=== PATIENT | male | born 1935 | race Caucasian/White ===

== ENCOUNTER 2016-08-25 05:22 | Day surgery (SDC) | payer MEDICARE, BC ==
[~2016-08-25] VITALS: Ht 175.3 cm; Wt 92.9 kg
--- NOTE | ~2016-08-25 | OR ---
PATIENT'S NAME: VICTORIANO PIERRE [place] AGE: 81 Y [address] ROOM: [place] [address] [place] [facility] [place]: 08/25/2016 OR/Procedure Report DISCHARGE DATE: 08/25/2016 FAMILY PHYSICIAN: Aung Bradford MD ATTENDING PHYSICIAN: Reed Fletcher SURGEON: Reed Fletcher MD EDITOR MANAGING NEWSPAPER: DATE OF PROCEDURE: 08/25/2016 PREOPERATIVE DIAGNOSES: 1. Carcinoma of the prostate. 2. Right ureteral obstruction with hydronephrosis. PREOPERATIVE DIAGNOSES: 1. Carcinoma of the prostate. 2. Right ureteral obstruction with hydronephrosis. PROCEDURES: 1. Cystoscopy and removal of stent. 2. Cystoscopy and retrograde pyelograms. 3. Cystoscopy insertion of stent 6-[place] Islander 26 cm. DESCRIPTION OF PROCEDURE: After adequate anesthesia, he was prepped and draped. A 21-[place] Islander cystoscope was passed. The anterior urethra and prostatic urethra were normal with no obstruction. Examination of the bladder was normal except there was lot of edema around the right orifice where the stent was coming from. With the endoscopic forceps, the stent was removed. A yellow open-ended catheter was inserted and contrast media was injected for the retrograde pyelograms. A guidewire was then passed. Over the guidewire, a 6-[place] Islander 26 cm stent was passed, coiled nicely in the kidney pelvis and the other end in the bladder. He was then accompanied to recovery area. RETROGRADE PYELOGRAM REPORT: The initial film showed degenerative changes of the lumbar spine. After injection of contrast media, the ureter was normal in course and caliber. There was dilatation of the renal pelvis and caliceal system. Final film shows a stent in place. IMPRESSION: Hydronephrosis, right kidney. PATIENT'S NAME: VICTORIANO PIERRE [place] AGE: 81 Y [address] ROOM: [place] [address] [place] [facility] [place]: 08/25/2016 OR/Procedure Report DISCHARGE DATE: 08/25/2016 FAMILY PHYSICIAN: Aung Bradford MD ATTENDING PHYSICIAN: Reed Flethcer MD EKL/modl /[id number] CC: Suresh Alonso MD d: 08/25/16 0733 t: 08/26/16 0455, OPERATIVE SUMMARY
--- NOTE | ~2016-08-25 | HP ---
PATIENT'S NAME: VICTORIANO PIERRE [facility] AGE: 81 Y [address] ROOM: [place] [address] LOCATION: [facility] ADMIT DATE: 08/19/2016 History & Physical DISCHARGE DATE: FAMILY PHYSICIAN: Aung Bradford MD ATTENDING PHYSICIAN: Maximino Fletcher DATE OF SERVICE: HISTORY OF PRESENT ILLNESS: This is an 81-year-old male, who was diagnosed with adenocarcinoma of the prostate in 2009. At that time, he was treated with radiation seed implant, but by October 2013, his PSA was on the rise and it increased from 0.7 to higher levels. He also has had an elevated serum creatinine. 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 In February 2015 a stent was placed and he was started on Firmagon every month. His PSA has dropped and he has continued to be on the Firmagon. He is seen now for stent change. He also has a history of multiple myeloma and is under the care Dr. Alonso. He is seen now for stent change. PAST MEDICAL HISTORY AND ILLNESSES: 1. Azotemia. 2. Hypertension. 3. Hypercholesterolemia. 4. Adenocarcinoma of the prostate. OPERATIONS: Right total knee hemorrhoidectomy, left total knee #4 as above. ALLERGIES: PENICILLIN. PHYSICAL EXAMINATION: GENERAL: A well-developed, well-nourished male. CHEST: Clear. HEART: Normal sinus rhythm. ABDOMEN: Soft with no palpable masses. : Normal penis. Testicles are normal. Prostate is flat with a firm left lobe. RECTAL: Negative. PATIENT'S NAME: VICTORIANO PIERRE [facility] AGE: 81 Y [address] ROOM: [place] [address] LOCATION: [facility] ADMIT DATE: 08/19/2016 History & Physical DISCHARGE DATE: FAMILY PHYSICIAN: Aung Bradford MD ATTENDING PHYSICIAN: Maximino Fletcher IMPRESSION: 1. 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 2. Right ureteral obstruction. 3. Right ureteral stent. PLAN: As above. MAXIMINO K MD GEOVANNI FLETCHER/juan daniel /[id number] D: [id number] T: [id number] HISTORY & PHYSICAL
[~2016-08-25 05:22] MED LIST changes: -CYMBALTA60 MG PO; -GLUTAMINE PO; -VITAMIN B-6100 MG PO
[2016-08-25 06:15] LABS: BASOPHIL % 0.6 %; EOSINOPHIL # 0.1 K/uL (0.0-0.5); EOSINOPHIL % 2.7 %; HEMATOCRIT 36.3 % (33.0-50.0); HEMOGLOBIN 11.5 g/dL (11.0-16.0); IMMATURE GRANULOCYTE % 0.6 %; LYMPHOCYTE # 1.2 K/uL (0.8-4.0); LYMPHOCYTE % 34.5 %; MCH 30.7 pg (27.0-34.0); MCHC 31.7 gm/dL (32.0-36.5); MCV 97.1 fl (83.0-98.0); MONOCYTE # 0.4 K/uL (0.0-1.0); MONOCYTE % 11.9 %; MPV 10.6 fl (9.4-12.4); NEUTROPHIL # (ANC) 1.7 K/uL (1.4-9.0); NEUTROPHIL % 49.7 %; NRBC % 0 /100WBC (0-0.00); RBC 3.74 M/uL (3.50-5.50); WBC 3.4 K/uL (4.0-11.0)
[2016-08-25 06:16] LABS: PLATELET COUNT 128 K/uL (150-450)
== END 2016-08-25 07:45 | disposition disaster alternative care site (69) ==
LOC: GSDC 05:22
PROVIDERS: Urology
PROC: 0T768DZ Dilation of Right Ureter with Intraluminal Device, Via Natural or Artificial Opening Endoscopic (ICD-10-PCS; principal; 2016-08-25)
PROC: 0TP98DZ Removal of Intraluminal Device from Ureter, Via Natural or Artificial Opening Endoscopic (ICD-10-PCS; 2016-08-25)
PROC: BT1DYZZ Fluoroscopy of Right Kidney, Ureter and Bladder using Other Contrast (ICD-10-PCS; 2016-08-25)
DX: C61 Malignant neoplasm of prostate (principal); N13.1 Hydronephrosis with ureteral stricture, not elsewhere classified; Z46.6 Encounter for fitting and adjustment of urinary device; R79.89 Other specified abnormal findings of blood chemistry; I10 Essential (primary) hypertension; E78.00 Pure hypercholesterolemia, unspecified; Z88.0 Allergy status to penicillin; Z98.890 Other specified postprocedural states
CPT/HCPCS: C1769; J7120

== ENCOUNTER → 2016-08-25 | Outpatient (CLI) | payer MEDICARE, BC ==
[~2016-08-25] MED LIST: "\\\"PREP SPRAY\\\"-TIN4 OZ"; ASPIRIN325 MG PO; CALCIUM 500 +1 EACH PO; CEFTIN500 MG PO; CYMBALTA60 MG PO; DECADRON4 MG PO; FEOSOL325 MG PO; FIRMAGON80 MG SUB-Q; FISH OIL1000 MG PO; FLEXERIL10 MG PO; FLOMAX0.4 MG PO; FLORASTOR250 MG PO; GLUTAMINE PO; K-TAB 10MEQ10 MEQ PO; LOPRESSOR50 MG PO; MOBIC15 MG PO; MULTI VITAMIN1 EACH PO; NORCO 5-325 MG1 TAB PO; NORVASC10 MG PO; PERCOCET 5-3251 EACH PO; PRILOSEC20 M1 PO; PROCRIT40000 UNIT SUB-Q; REVLIMID5 MG PO; RYTHMOL150 MG PO; TENORMIN25 M1 PO; VITAMIN B-1000 MCG/M SUB-Q; VITAMIN B-6100 MG PO; ZOMETA4 MG/5 ML IV; [UNRECOGNIZED DRUG - OTHER] IV
== END | disposition disaster alternative care site (69) ==
LOC: GRAD 09:51
DX: C61 Malignant neoplasm of prostate (principal); C79.51 Secondary malignant neoplasm of bone
CPT/HCPCS: A9503

== ENCOUNTER → 2016-09-01 | Outpatient (CLI) | payer MEDICARE, BC ==
[~2016-09-01] MED LIST changes: +CYMBALTA60 MG PO; +GLUTAMINE PO; +VITAMIN B-6100 MG PO
== END | disposition disaster alternative care site (69) ==
LOC: GRAD 12:13
DX: C90.01 Multiple myeloma in remission (principal); M47.812 Spondylosis without myelopathy or radiculopathy, cervical region; M47.816 Spondylosis without myelopathy or radiculopathy, lumbar region; M51.26 Other intervertebral disc displacement, lumbar region; M48.54XD Collapsed vertebra, not elsewhere classified, thoracic region, subsequent encounter for fracture with routine healing; M89.9 Disorder of bone, unspecified; M79.652 Pain in left thigh; D69.6 Thrombocytopenia, unspecified; D47.2 Monoclonal gammopathy; D51.8 Other vitamin B12 deficiency anemias; D63.1 Anemia in chronic kidney disease; M62.81 Muscle weakness (generalized); R53.83 Other fatigue; R20.0 Anesthesia of skin
CPT/HCPCS: A9577

== ENCOUNTER 2016-09-30 17:15 | Inpatient (IN) | payer MEDICARE, BC ==
[~2016-09-30] VITALS: Ht 175.3 cm; Wt 91.7 kg
--- NOTE | ~2016-09-30 | HP ---
PATIENT'S NAME: VICTORIANO PIERRE [facility] AGE: 81 Y [address] ROOM: [address] [place], [place] [address] [facility] ADMIT DATE: 09/30/2016 History & Physical DISCHARGE DATE: FAMILY PHYSICIAN: Aung Bradford MD ATTENDING PHYSICIAN: REY BENZ DATE OF SERVICE: CHIEF COMPLAINT: Confusion, not feeling well. HISTORY OF PRESENT ILLNESS: An 81-year-old gentleman with a past medical history of multiple myeloma, undergoing chemotherapy as well as metastatic prostate carcinoma, undergoing chemotherapy. He presented to Dr. Gillespie's, PCP, clinic today, where he was brought in by significant other for not being himself for past 1 week. It appears that he has been having these symptoms of not feeling well, getting in and out of confused state, not drinking much, not eating, and feeling weak all the time. At the primary care physician's office, a BMP was done, which did show sodium of 123 and he was admitted here for further workup. On my encounter, he appears drowsy but alert and oriented x3. He, at this point, stated he is feeling weak, but he denied any other symptoms. He said he has chronic back pain secondary to his cancer, but he said, otherwise, he feels well. Does not have much appetite. He said he does not have any cough, any sputum production, any shortness of breath, any chest pain, any dizziness, any trouble with the eyes, any abdominal pain, or any constipation or diarrhea. He did complain of going to the bathroom for urinating multiple times during the day which is not normal for him. He denied any orthopnea or any leg swelling. He denied any hematuria. REVIEW OF SYSTEMS: All other systems were reviewed and were negative except what is mentioned in the HPI. PAST MEDICAL HISTORY: Significant for, 1. Metastatic prostate carcinoma. 2. Multiple myeloma. 3. Hypercholesterolemia. 4. Hypertension. 5. Coronary artery disease, status post OH and stenting in 2008. 6. Paroxysmal atrial fibrillation, not on any long-term anticoagulation secondary to hematuria. 7. History of right ureteral obstruction with hydronephrosis. 8. Chronic kidney disease stage 3. PATIENT'S NAME: VICTORIANO PIERRE [facility] AGE: 81 Y [address] ROOM: [id number] [place], [place] [address] [facility] ADMIT DATE: 09/30/2016 History & Physical DISCHARGE DATE: FAMILY PHYSICIAN: Aung Brafdord MD ATTENDING PHYSICIAN: REY BENZ PAST SURGICAL HISTORY: Multiple stents to urethra, most recently done on 02/09/2016, patient of Dr. Fletcher; bilateral knee replacement; left hip replacement; L3-L4 laminectomy and decompression; bilateral cataract extraction. SOCIAL HISTORY: He is a , has fiancee who lives next door. Smoked pipe, but quit 45 years ago. Three to four alcoholic drinks per week. FAMILY HISTORY: Family history is positive for coronary artery disease in dad who underwent bypass grafting. ALLERGIES: THE PATIENT IS ALLERGIC TO PENICILLIN THAT WAS DIAGNOSED BACK IN 1951 WHEN HE BROKE OUT INTO RASH. MEDICATION LIST: 1. Epoetin 4000 units subcu as needed p.r.n. to keep the hemoglobin above 12. 2. Ferrous sulfate 325 mg p.o. every day. 3. L-Glutamine 10 grams p.o. 3 times daily. 4. Lenalidomide 5 mg p.o., take q.21 days. 5. Metoprolol 50 mg p.o. twice daily. 6. Multivitamins. 7. Reliance-3 fish oil. 8. Amlodipine 5 mg p.o. twice daily. 9. Aspirin 325 mg p.o. at bedtime. 10. Cyanocobalamin, B12, 1000 mcg subcu q.30 days. 11. Firmagon 80 mg subcu once monthly. 12. Dexamethasone 20 mg p.o. once weekly. 13. Cymbalta 60 mg p.o. every evening at 2100 hours. 14. Omeprazole 20 mg p.o. every morning. 15. Oxycodone/acetaminophen 1 tablet p.o. every 4 hours p.r.n. 16. Propafenone 150 mg p.o. 3 times daily. 17. Pyridoxine, vitamin B6 tablet 100 mg p.o. every day. 18. Tamsulosin, Flomax 0.4 mg p.o. every night at bedtime. PHYSICAL EXAMINATION: VITAL SIGNS: Blood pressure 174/97, pulse 64, temperature 98.6, respirations 16. GENERAL: In no acute distress, drowsy but alert and oriented x3. HEENT: Head; atraumatic, normocephalic. Eyes, nonicteric. No pallor. Oropharynx, dry mucous membranes. PATIENT'S NAME: VICTORIANO PIERRE [facility] AGE: 81 Y [address] ROOM: [id number] [place], [place] [address] LOCATION: [facility] ADMIT DATE: 09/30/2016 History & Physical DISCHARGE DATE: FAMILY PHYSICIAN: Aung Bradford MD ATTENDING PHYSICIAN: REY BENZ CARDIOVASCULAR: S1 and S2. No murmurs, gallops, or rubs. LUNGS: Clear to auscultation bilaterally. ABDOMEN: Soft, nontender, nondistended. Bowel sounds are present. Some erythema from the recent chemo shot was noted. No costovertebral tenderness was noted. EXTREMITIES: No clubbing, cyanosis, or edema. NEUROLOGIC: Cranial nerves 2 through 12 intact. No motor or sensory deficit noted. Power 5/5 in all extremities. PSYCH: Flat affect, mood, and speech. LABORATORY WORK: Lab work from the primary care physician's office showed white count of 12, hemoglobin of 11, platelets 129. Sodium of 123, potassium of 3.1, chloride 90, bicarb of 19, BUN 19, creatinine of 1.65, calcium of 8. UA was also done at the primary care physician's office, which was negative for nitrite but trace leukocyte esterase was noted, 10 to 20 white blood cells were noted, and rbc's were too numerous to count. ASSESSMENT AND PLAN: 1. Acute metabolic encephalopathy. 2. Hyponatremia, subacute. 3. Acute cystitis. 4. Hypertension. 5. Atrial fibrillation, not on long-term anticoagulation. 6. Multiple myeloma. 7. Metastatic prostate carcinoma. 8. Hypokalemia. 9. Iron-deficiency anemia. 10. Anemia of chronic disease. PLAN: We are going to admit this patient to the PCU. 1. I believe his metabolic encephalopathy actually started secondary to acute cystitis. He does not have a grossly positive urinalysis in terms of leukocyte esterase only , but he definitely has symptoms of acute cystitis by going to the bathroom many times a day. We are going to treat this with IV Rocephin. We are going to give him only 500 mL of LR bolus to correct his hypovolemia. I believe his hyponatremia is secondary to hypovolemia and his sodium will rise too quickly once we correct the hypovolemia, so I am going to give him desmopressin as well in order to prevent that. We will change the fluid to normal saline after this bag and continue to monitor serial sodium. We will continue his home dose of metoprolol as well as Norvasc for hypertension. 2. Atrial fibrillation is well control at this point, he is not on long long- PATIENT'S NAME: VICTORIANO PIERRE [facility] AGE: 81 Y [address] ROOM: [place] [address] [facility] ADMIT DATE: 09/30/2016 History & Physical DISCHARGE DATE: FAMILY PHYSICIAN: Aung Bradford MD ATTENDING PHYSICIAN: REY BENZ term anticoagulation. 3. Multiple myeloma. He is getting treatment, he is a patient of Dr. Alonso. Please consider to have Dr. Alonso see him in the clinic. 4. We are going to replace potassium here orally as well as IV. Further management will depend on his progress here in the hospital. 5. Chronic kidney disease stage 3 secondary to prostate cancer and likely multiple myeloma as well. It seems to be stable at this point. We will follow. If needed, we will consider a Nephrology consultation. 6. Code status was discussed with the patient and he is full code. MD FAM DNUN/juan daniel /[id number] D: [id number] T: 0 HISTORY & PHYSICAL
--- NOTE | ~2016-09-30 | DS ---
PATIENT'S NAME: VICTORIANO PIERRE [facility] AGE: 81 Y [address] ROOM: [id number] [place], [place] [address] LOCATION: [facility] ADMIT DATE: 09/30/2016 Discharge Summary DISCHARGE DATE: 10/05/2016 FAMILY PHYSICIAN: Aung Bradford MD ATTENDING PHYSICIAN: Arsen Khanna FINAL DIAGNOSES: 1. Acute metabolic encephalopathy. 2. Hyponatremia. 3. Primary hypothyroidism. 4. Acute cystitis. 5. Atrial fibrillation, not on anticoagulation. 6. Multiple myeloma. 7. Metastatic prostate cancer. 8. Hypokalemia. 9. Iron deficiency anemia. HISTORY OF PRESENT ILLNESS: For details of admission, please see the history and physical dictated by Dr. Khanna. In short, the patient presented to Dr. Gillespie's clinic after not feeling well for about a week. During that timeframe, he has laboratories drawn and showed that he was quite hyponatremic with a serum sodium of 123. At that time, it was felt that he needed to be admitted. LABORATORY DATA: On admission, sodium was 123, then on follow up, it was 130, his sodiums then remained between 130 and 132 throughout the hospital stay; potassium on admission was 3.2, most prior to discharge 3.5; BUN on admission was 17, discharge 13; creatinine on admission was 1.5, it ranged between 1.4 and 1.6 throughout the hospital stay, 1.5 on discharge. His TSH was 66.2. White blood cell count was 13.3 on admission, most prior to discharge is 5.2; hemoglobin on admission was 10.8, discharge 11.3. Procalcitonin on admission was 6.92. MICROBIOLOGY DATA: Blood culture was negative. Urine culture obtained on the returned negative. HOSPITAL COURSE: The patient was admitted to the hospital. It was felt that his hyponatremia was in part due to some mild dehydration. There were also concerns about SIADH. He was given aggressive IV hydration. He was given normal saline bolus and started on IV normal saline. He was also given a dose of desmopressin. He was actually given 2 doses of desmopressin. There was a concern that he may have a UTI. He was started on IV Rocephin. Second hospital day, his sodium had improved. He was feeling much better. He was actually able to get up and move around. At that point, urine culture was obtained. He was taken off the Rocephin and placed on Keflex. PT and OT were PATIENT'S NAME: VICTORIANO PIERRE [facility] AGE: 81 Y [address] ROOM: [id number] [place], [place] [address] LOCATION: [facility] ADMIT DATE: 09/30/2016 Discharge Summary DISCHARGE DATE: 10/05/2016 FAMILY PHYSICIAN: Aung Bradford MD ATTENDING PHYSICIAN: Arsen Khanna asked to work with him. TSH had been ordered. It did return elevated indicating that he had primary hypothyroidism. He was started on thyroid replacement. Also during the hospital stay, his blood pressure medications were adjusted. He did occasionally require IV hydralazine to control his heart rate. His medications were adjusted, and they did keep his sugars under control. He was continued on a fluid restriction. There was some concern from the family and his significant other about his ability to safely return to home. The Care Management did look into skilled care. He was accepted at the [facility]. DISCHARGE INSTRUCTIONS: Continue 2000 mL fluid restriction. Regular diet. He will need PT and OT. Prior to discharge, he will need an overnight trend ox as he did have apneic episodes in the hospital. His TSH needs to be rechecked in 6 weeks, which is approximately November 15. MEDICATIONS: 1. Norvasc 7.5 mg daily. 2. Aspirin 325 mg daily. 3. Decadron 20 mg once weekly. 4. Cymbalta 60 mg daily. 5. Feosol 325 mg daily. 6. Lopressor 50 mg twice daily. 7. Multivitamin 1 daily. 8. Synthroid 75 mcg daily. 9. Fish oil a 1000 mg twice daily. 10. Prilosec 20 mg daily. 11. Rythmol 150 mg 3 times daily. 12. Vitamin B6 100 mg daily. 13. Flomax 0.4 mg at bedtime. 14. Vitamin B12 subcu every 30 days. 15. Percocet 5/325 one every 4 hours as needed for pain. 16. Procrit 40,000 units if his hemoglobin is less than 12. 17. Revlimid 5 mg p.o. for 21 days, off for 7. 18. Degarelix acetate 80 mg given subcu once monthly. 19. Glutamine 10 g 3 times daily. 20. Potassium chloride 40 mEq daily. 21. Magnesium oxide 400 mg p.o. daily. I did speak with Dr. Sinha regarding this discharge. MANISHA URIBE MD LAW/modl PATIENT'S NAME: VICTORIANO PIERRE [facility] AGE: 81 Y [address] ROOM: [place] [address] [facility] AD[facility] DATE: 09/30/2016 Discharge Summary DISCHARGE DATE: 10/05/2016 FAMILY PHYSICIAN: Aung Bradford MD ATTENDING PHYSICIAN: Arsen Khanna /[id number] d: 10/06/16 0201 t: 10/22/16 1832, DISCHARGE SUMMARY
[~2016-09-30 17:15] MED LIST changes: -CYMBALTA60 MG PO; -GLUTAMINE PO; -VITAMIN B-6100 MG PO
--- NOTE | 2016-09-30 18:57 | NUR ---
Pt is 81 y/o male admit for hyponatremia and some confusion for hospitalist. Allergy to PCN and iron injections. Significant other states he's been slightly confused for about a week off and on. Saw in ED in [place] on last Tuesday and had CT of head,which was negative. Pt had an epidural at [facility] this am for chronic back pain. Tuesday he kept stating he just felt terrible. Hx R)ureteral stent,CAD,htn,prostate CA,cardiac stent,afib,OH,arthritis,constipation,multiple myeloma. Pt drowsy but oriented x3 at this time.
--- NOTE | 2016-09-30 18:57 | NUR ---
D:Patient arrived per wheelchair, family is with him. Able to stand and transfer few steps to bed from wheelchair. Family said he had not been very steady the last few days, and he had needed assist with transfers. reported that he had not been tracking very well. They had also had him in for epidural today before going to Dr. Almendarez's office. He was sent here for low Na and UTI.
[2016-09-30] MEDS ORDERED: CYMBALTA60 MG PO (20:08)
[2016-09-30] MEDS ORDERED: VITAMIN B-6100 MG PO (20:11)
[2016-09-30] MEDS ORDERED: GLUTAMINE PO (20:13)
[2016-09-30 23:56] LABS: ANION GAP 16.2 (10.0-19.0); CALCIUM 8.1 mg/dL (8.5-10.5); CREATININE 1.5 mg/dL (0.6-1.3); POTASSIUM 3.2 mMol/L (3.7-5.1)
[2016-10-01 03:33] LABS: BASOPHIL % 0.1 %; HEMATOCRIT 31.4 % (33.0-50.0); HEMOGLOBIN 10.8 g/dL (11.0-16.0); IMMATURE GRANULOCYTE # 0.1 K/uL (0.0-0.3); IMMATURE GRANULOCYTE % 0.9 %; LYMPHOCYTE # 1.2 K/uL (0.8-4.0); LYMPHOCYTE % 8.9 %; MCHC 34.4 gm/dL (32.0-36.5); MCV 92.9 fl (83.0-98.0); MONOCYTE # 0.5 K/uL (0.0-1.0); MONOCYTE % 4.1 %; MPV 10.4 fl (9.4-12.4); NEUTROPHIL # (ANC) 11.5 K/uL (1.4-9.0); NRBC % 0 /100WBC (0-0.00); PLATELET COUNT 114 K/uL (150-450); RBC 3.38 M/uL (3.50-5.50); RDW-CV 16.2 % (11.9-14.6); WBC 13.3 K/uL (4.0-11.0)
[2016-10-01 03:50] LABS: ANION GAP 16.2 (10.0-19.0); CALCIUM 7.6 mg/dL (8.5-10.5); CREATININE 1.4 mg/dL (0.6-1.3)
[2016-10-01 03:51] LABS: POTASSIUM 4.2 mMol/L (3.7-5.1)
--- NOTE | 2016-10-01 06:58 | NUR ---
Significant Event: Patient is alert/oriented x3, slightly forgetful at times. Vital signs are stable. On room air. Denies any pain. Last serum sodium was 132. Patient received total of 80 mEq KCl, serum K is now 4.2. IV fluids have been D/C'd. On IV Rocephin. Voids per urinal. at bedside. Follow up: Continue to monitor per plan of care.
[2016-10-01 07:25] LABS: CALCIUM 7.7 mg/dL (8.5-10.5); CREATININE 1.4 mg/dL (0.6-1.3)
[2016-10-01 11:35] LABS: ANION GAP 18.8 (10.0-19.0); CALCIUM 7.5 mg/dL (8.5-10.5); CREATININE 1.6 mg/dL (0.6-1.3); POTASSIUM 3.8 mMol/L (3.7-5.1)
--- NOTE | 2016-10-01 13:57 | NUR ---
Introduced self and role of care management to pt. I asked if his lady friend was here and he stated she left for the day. He stated he lives in [place] by himself but she does live next door. He has children but they are down in [place]. He states he sets up his meds and recently using a cane due to unsteadiness. His house is 2 levels but he only goes downstairs a couple times a week for his laundry. I did ask him about his ambulation and he states he went up the quiles not too long ago and did pretty well. I discussed dc plans and he plans on home. I did mention [facility] or swingbed and he denies at this time. WIll continue to follow.
[2016-10-01 15:19] LABS: ANION GAP 15.5 (10.0-19.0); CALCIUM 7.7 mg/dL (8.5-10.5); CREATININE 1.5 mg/dL (0.6-1.3); POTASSIUM 3.5 mMol/L (3.7-5.1)
--- NOTE | 2016-10-01 17:27 | NUR ---
Significant Event:Patient has been up to recliner most of day. Appetite good. Has been able to ambulate in hallway with good toleration. Family doesn't want him to go home, because they don't feel he is safe. Urine culture sent to lab. Na has been 133. Remains on room air. Follow up:Continue to monitor
[2016-10-01 18:34] LABS: ANION GAP 15.5 (10.0-19.0); CREATININE 1.4 mg/dL (0.6-1.3); POTASSIUM 3.5 mMol/L (3.7-5.1)
[2016-10-01 18:35] LABS: CALCIUM 7.4 mg/dL (8.5-10.5)
--- NOTE | 2016-10-02 04:39 | NUR ---
Significant Event: Patient is alert/oriented x3, becomes very forgetful at night, especially after awakening. Vital signs are stable. Continues on room air. Last sodium was 131 at 1800. Percocet given x1, with relief. Significant other remains at beside. Follow up: Patient will probably remain here through the weekend while we determine possible placement.
[2016-10-02 05:17] LABS: ALBUMIN 2.9 gm/dL (3.5-5.0); ANION GAP 13.2 (10.0-19.0); CREATININE 1.3 mg/dL (0.6-1.3); MAGNESIUM 1.8 mg/dL (1.8-2.6); PHOSPHORUS 2.1 mg/dL (2.5-4.9); POTASSIUM 3.2 mMol/L (3.7-5.1)
[2016-10-02 05:20] LABS: CALCIUM 7.1 mg/dL (8.5-10.5)
[2016-10-02 13:34] LABS: BICARBONATE 22.4 mmol/L (18.0-23.0); PCO2 33 mmHg (35-45); PO2 86 mmHg (80-90)
--- NOTE | 2016-10-02 19:04 | NUR ---
Significant Event: PT A&O x3, confused/forgetful, drowsy. VSS, on room air. Urinary retention, voids better standing. Bilateral IV's patent. BM large today. No pain meds given. Minimal appetite. Bandain intact to back. ?Swingbed on tuesday?? Follow up:
[2016-10-03 06:24] LABS: BASOPHIL % 0.2 %; HEMATOCRIT 33.3 % (33.0-50.0); HEMOGLOBIN 11.3 g/dL (11.0-16.0); IMMATURE GRANULOCYTE # 0.1 K/uL (0.0-0.3); IMMATURE GRANULOCYTE % 2.1 %; LYMPHOCYTE # 0.8 K/uL (0.8-4.0); LYMPHOCYTE % 16.2 %; MCH 31.4 pg (27.0-34.0); MCHC 33.9 gm/dL (32.0-36.5); MCV 92.5 fl (83.0-98.0); MONOCYTE # 0.3 K/uL (0.0-1.0); MPV 9.6 fl (9.4-12.4); NEUTROPHIL % 76.5 %; NRBC % 0 /100WBC (0-0.00); PLATELET COUNT 131 K/uL (150-450); RDW-CV 15.9 % (11.9-14.6); WBC 5.2 K/uL (4.0-11.0)
[2016-10-03 06:38] LABS: ANION GAP 14.2 (10.0-19.0); CREATININE 1.3 mg/dL (0.6-1.3); MAGNESIUM 1.8 mg/dL (1.8-2.6); POTASSIUM 3.2 mMol/L (3.7-5.1)
[2016-10-03 06:40] LABS: CALCIUM 7.3 mg/dL (8.5-10.5)
--- NOTE | 2016-10-03 07:13 | NUR ---
Significant Event: Patient has been drowsy throughout the night but alerts easily to voice. Oriented x3, but says comments that are unrelated to what is happening at times. Denies any pain. Vital signs are stable. Continues on room air. Ambulates well with 1A and gait belt. Follow up: Plan to dismiss to swingbed next week. Will need overnight trendox prior to dismissal.
--- NOTE | 2016-10-03 18:50 | NUR ---
Significant Event: ALERT & ORIENTED TO QUESTIONS BUT DROWSY. FAMILY NOTICED IMPROVEMENT IN NEURO STATUS FROM YESTERDAY BUT STILL HOPING FOR SWING BED PLACEMENT IN [place]. SBA WITH GAITBELT AND WALKER. UP TO CHAIR FOR DINNER. POOR APPETITE. VSS, AFEBRILE, ROOM AIR. GAVE IV AND ORAL POTASSIUM AND 500 ML NORMAL SALINE. Follow up: ELECTROLYTE LABS IN AM. NEEDS TREND OX UPON DC.
[2016-10-04 04:38] LABS: ANION GAP 12.1 (10.0-19.0); CREATININE 1.4 mg/dL (0.6-1.3); MAGNESIUM 1.8 mg/dL (1.8-2.6); POTASSIUM 4.1 mMol/L (3.7-5.1)
[2016-10-04 04:48] LABS: CALCIUM 7.4 mg/dL (8.5-10.5)
--- NOTE | 2016-10-04 05:19 | NUR ---
A/O. FORGETFUL AT TIMES. HR 60s. SBP 150-170s. ROOM AIR. AFEBRILE. 1A TO CHAIR. DENIES PAIN. VOIDS PER URINAL.
--- NOTE | 2016-10-04 13:21 | NUR ---
Introduced self adn role of care management to pt's s/o and his son from [place]. I did discuss discharge plans and that I understand they are wanting the swingbed. I did discuss with them that he is doing fairly well with therapy but would be happy to check with facilities. The son did get his sister on the phone as well to listen. I did give options and they would like [facility] swingbed. I asked about [facility] and at this time they have voiced there concerns there but after reviewing all the options and explaining I can notify [facility] but without having a md there will have to see. His s/o stated they saw Dr Sinha in the past at some point. I also mentioned [facility] in [facility] or the [facility]. They perfer the swingbed and have [facility] as first and [facility] as second choice. I then called [facility] and spoke with a Kerry and faxed information. They may have beds and she does know the pt. I then call [facility] and faxed referral as well to them. She states she is aware of the concerns and will also review the information. I did update Dr Vail and will hope to hear more today if not tomorrow. WIll continue to follow.
--- NOTE | 2016-10-04 14:40 | NUR ---
I did get a call from [facility] and she states they should be able to take. She will not discuss with md until we know if [facility] is able to accept. She did tell me Dr Boogie is out till Tuesday but can have another practioner accept till then. WIll continue to follow.
--- NOTE | 2016-10-04 16:12 | NUR ---
[facility] coordinator called and they can accept tomorrow if ready for discharge. Let Dr Vail know and put Dr Sinha phone number on the front of the chart to call to accept to swingbed. Let pt, son and daughter know as well, they will transport.
--- NOTE | 2016-10-04 16:22 | NUR ---
Significant Event: Patient A/O x 3. VSS on RA. Up with 1A and walker in hallways. Denies pain throughout the day. Sodium 130 today. Placed on 1750 ml fluid restriction. RFA and LFA PIV SL. Family at bedside throughout the day. Follow up: Continue as per plan of care. Referral sent to [facility] today. Awaiting placement per family request.
--- NOTE | 2016-10-05 04:38 | NUR ---
A/O. HR 60-70s. SBP 100-130s. ROOM AIR. AFEBRILE. DENIES PAIN. SMALL VOIDS. NO BM. 1A KEYANA ZAYAS.
[2016-10-05 04:46] LABS: ANION GAP 12.5 (10.0-19.0); CREATININE 1.5 mg/dL (0.6-1.3); MAGNESIUM 1.7 mg/dL (1.8-2.6); POTASSIUM 3.5 mMol/L (3.7-5.1)
[2016-10-05 04:54] LABS: CALCIUM 7.4 mg/dL (8.5-10.5)
--- NOTE | 2016-10-05 10:38 | NUR ---
Transfer Note: Patient A/O x 3. Knows that it is September 2016, but unaware of specific day. Vital signs stable: HR 66, RR 20, BP 152/82, O2 saturation 96% on room air, temper 97.3F, and denies pain or shortness of breath. Lung sounds clear. Bowel sounds active. Last BM today. No problems voiding. Scattered ecchymosis throughout body. Occasionally reports dizziness upon standing. Sodium stable at 131. Family and patient deny any questions or needs. Transferring to [facility] with family. Report given to RUTH ANN Nguyen, at approximately 1035. Denies any further questions. Min VALLECILLO 10/05/16
--- NOTE | 2016-10-05 11:49 | NUR ---
I did call at 1015 and spoke with Prosper at [facility] and explained my doctor spoke with Dr Sinha and that I also faxed orders and plan transfer today. Prosper did check and anytime for pt to leave will be great. I spoke with pt, and son and nursing and all agree with the plan. I did call Timothy at [facility] and updated her.
--- NOTE | 2016-10-05 11:56 | NUR ---
Patient left PCU at 1107 per wheelchair with family to [facility]. No other needs at time of discharge. Min VALLECILLO 10/05/16
== END 2016-10-05 11:07 | disposition swing bed (61) | DRG 640 ==
LOC: GPCU 17:18
PROVIDERS: Internal Medicine; ADMIT Internal Medicine
DX: E87.1 Hypo-osmolality and hyponatremia (principal); G93.41 Metabolic encephalopathy; E86.0 Dehydration; C90.00 Multiple myeloma not having achieved remission; I48.0 Paroxysmal atrial fibrillation; N30.00 Acute cystitis without hematuria; B96.89 Other specified bacterial agents as the cause of diseases classified elsewhere; C61 Malignant neoplasm of prostate; E03.9 Hypothyroidism, unspecified; E87.6 Hypokalemia; D50.9 Iron deficiency anemia, unspecified; Z87.891 Personal history of nicotine dependence; Z79.899 Other long term (current) drug therapy
CPT/HCPCS: A9270; J0696; J1644; J2597; J3480; J7040; J7050; J7120